=== PATIENT | male | born 1935 | race Caucasian/White ===

== ENCOUNTER 2019-12-03 15:00 | HOS | payer OTHER, MEDICARE, SELFPAY ==
[2019-12-03] VITALS (8 sets, daily range): BP systolic 151–181; BP diastolic 71–103; PULSE 70–143; RESP 18–26; TEMP 36–36.6; O2SAT 95–100; BMI 21.8
--- NOTE | ~2019-12-03 | CT_ITS ---
EXAMINATION: CT brain wo con EXAM DATE: 12/03/2019 16:09 INDICATION: Fall. Lung cancer. TECHNIQUE: Spiral CT of the head was performed without contrast. Axial, coronal and sagittal images were reviewed. The dose-length product (DLP) for this examination was 605.33 mGy-cm. The exposure w as tailored according to patient size, and iterative reconstruction (ASIR) was used as additional dos e reduction technique. There is no prior study for comparison. FINDINGS: Heterogeneous right temporal lobe mass measuring 3.1 cm with sizable amount of hyperdensity within it and moderate amount of associated adjacent right temporal lobe vasogenic edema. Mass has a lso involves the dura, calvarium with complete bony dehiscence for about 2 cm diameter region. Appear ance is most consistent with a hemorrhagic metastatic lesion. There is also erosion of the calvarium along the dura in the right parietal region and larger amount in the left parieto-occipital region (w hich also involves the outer table and sagittal sinus) with hyperdense metastatic disease measuring a bout 4 mm in thickness. Abnormal soft tissue densities also seen along the superficial aspect of the left parieto-occipital bone. There is small right-sided mildly dense fluid collection, could be subac tanacross subdural hematoma. No hydrocephalus. Mild microangiopathy and cerebral atrophy. Bilateral cataract surgery. The visualiz ed portions of the sinuses and mastoid air cells are well aerated. IMPRESSION: 1. Intracranial metastatic disease with right temporal lobe hemorrhagic metastasis measuring 3.1 cm , bony dehiscence of calvarium. 2. Epidural malignancy invading calvarium right parietal and left parieto-occipital regions. 3. Mildly dense than right-sided subdural fluid collection could be subacute hematoma. I discussed these findings with Nicolasa Hernandez MD at 12/03/2019 16:21 NEUROSCIENCE SPECIALIST . Reviewed, dictated and finalized at location A. OSCIENCE SPECIALIST IMPRESSION: 1. Intracranial metastatic disease with right temporal lobe hemorrhagic metas tasis measuring 3.1 cm, bony dehiscence of calvarium. 2. Epidural malignancy invading calvarium right parietal and left parieto-occi pital regions. 3. Mildly dense than right-sided subdural fluid collection could be subacute h ematoma. I discussed these findings with Nicolasa Hernandez MD at 12/03/2019 16:21 NEUROSCIENCE SPECIALIST .
--- NOTE | ~2019-12-03 | XR_ITS ---
EXAMINATION: XR chest 2V EXAM DATE: 12/03/2019 16:14 INDICATION: Fall and weakness. Shortness of breath. TECHNIQUE: Frontal and lateral projections of the chest obtained and reviewed. Comparison is made to prior examination from 11/11/2019. FINDINGS: Extensive abnormal reticulation, chronic interstitial lung disease. There is left hilar, ri ght lower paratracheal lymphadenopathy. Some more focal opacities could be the nodules suspected to b e cancer and described on CT scan from September. No evidence of superimposed acute airspace disease. No pneumothorax or sizable pleural effusion. Cardiac silhouette is enlarged but stable in size compar ed to prior exam. There is aortic arterial sclerosis. There are mild bony degenerative changes. IMPRESSION: 1. Extensive abnormal reticulation, chronic interstitial lung disease. 2. Pulmonary nodules, left hilar and mediastinal metastatic lymphadenopathy. 3. No acute findings suspected. Reviewed, dictated and finalized at location A. NT CHEMIST
--- NOTE | 2019-12-03 15:16 | PC.NURSE ---
Patient was brought into the ED from home by his daughter due to having 2 falls today. She reports that she found him on the floor next to his bed when she came over this morning. Patient denied that he fell and told her that he was just laying on the ground to sleep. Patient was unable to get up on his own and his daughter was unable to get him up. He was also incontinent of urine at that time. EMS was called but patient refused transport. She reports he was able to tell them day, date, time, president. She also states that after EMS left the patient was not able to recall that it was breakfast time and he was denying that he fell. She reports that patient had a second ground level fall and she needed to take him for evaluation. Patient was still denying that he fell for the second time. His daughter further states that this patient is not compliant with home oxygen use and that he is not eating or drinking at home. She reports that he has been having increasing weakness as well. She does not believe that he is able to care for himself safely and is looking for possible placement for the patient. He is reported to have started with hospice today as well. The patient's daughter is discussing these issues with the EDP.
--- NOTE | 2019-12-03 15:18 | ED.FALL ---
HPI - Fall General Chief Complaint: Fall Stated Complaint: weakness, falls, congestion Time Seen by Provider: 12/03/19 15:14 Source: patient, family (daughter) and RN notes reviewed Mode of arrival: ambulatory Limitations: no limitations History of Present Illness HPI Narrative: Pt is an 84 y/o white male who presents to the ED with c/o 2 unwitnessed falls today. PT states that the falls hadn't been hard, though he is unsure why he fell. Pt denies pain anywhere, SOB, or nausea. He notes he hasn't had an appetite. The pt's daughter reports that she had been at his house today showing a new home health nurse around when she found that the pt had fallen and had his head propped on a pair of wadded up jeans for a pillow between his bed and nightstand. As that time EMS was called, but by the time they arrived the pt had already been able to move himself off the floor and to his bed. His daughter notes that the pt didn't want EMS there and refused to go with them. His daughter states she had run an errand a little later and when she returned she found that the pt had once again fallen near the front door and this time was unable to pick himself up. The home health nurse and daughter were able to help the pt reach a wheelchair and then a recliner. Normally the pt refuses to use a walker to move around, but he did use one to reach the car when coming to the ED. The pt was Dx with lung CA 3 years ago and over the past 2 years he has progressively worsened (up until his last hospitalization the pt had still been driving). The pt recently saw Dr. Alvarez who recommended hospice. Two weeks ago he saw his oncologist, who he is scheduled to see again on 06 December, and at that time he might be given medication which has a small chance of making him more comfortable, but he won't be doing any more treatments. Aside from the falls, the pt has also been congested, not eating/drinking normally, dehydrated, his speech has been garbled (past couple of days), and his O2Sat levels drop to the 70's-80's with any activity (at rest his O2Sat has been fine). Because the pt still lives alone and his condition is progressively worsening, especially over the last couple days, the pt's daughter wants the pt to be placed in a home somewhere under hospice so that the pt can be given fluids at least if need be and watched for falls. She notes that her also has stage 4 lung CA, her father wouldn't want to live at her house, and she is unable to care for both of them as she can't lift her father off the ground when he falls. Pt has a Hx of Orthostatic Hypotension and Alzheimer's. The scabbing on the pt's head is due to falling a couple weeks ago. complaint: fall Fall witnessed: no Place fall occurred: home Context: other (terminal lung CA with progressively wosening Sx) Associated symptoms (after fall): denies Related Data Home Medications Medication Instructions Recorded Confirmed citalopram 10 mg tablet 10 mg PO DAILY 09/29/19 12/03/19 cyanocobalamin (vitamin B-12) 1,000 mcg PO DAILY 09/29/19 12/03/19 1,000 mcg tablet donepezil 10 mg tablet 10 mg PO DAILY tablet 09/29/19 12/03/19 metformin 500 mg tablet 500 mg PO QAM 09/29/19 12/03/19 albuterol sulfate [ProAir HFA] 1 inhalation INHALATION Q4H PRN 11/11/19 12/03/19 aspirin 81 mg DAILY 12/03/19 12/03/19 Allergies Allergy/AdvReac Type Severity Reaction Status Date / Time No Known Drug Allergies Allergy Unknown Unknown Verified 11/28/19 11:44 Review of Systems Review of Systems: All systems reviewed & are unremarkable except as noted in HPI and below Constitutional: Constitutional: Reports poor appetite and Denies other (pain anywhere) Comments: reports dehydration; garbled speech ENT: Reports other (congestion) Respiratory: Respiratory: Denies dyspnea Gastrointestinal: Gastrointestinal: Denies nausea Integumentary/Breasts: Skin/Breast: Reports other (2 week old scabbing on head) [facility] Past Medical History
[2019-12-03 15:48] LABS: Basophils Absolute Auto 0.1 K/mm3 (0.0-0.1); Basophils Percent Auto 0.3 % (0.2-1.2); Eosinophils Absolute Auto 0.3 K/mm3 (0-0.3); Eosinophils Percent Auto 0.9 % (0-4.4); Hematocrit 47.1 % (42.0-52.0); Hemoglobin 15.2 g/dL (14.0-18.0); Immature Granulocyte Percent A 1.4 % (0-0.5); Lymphocytes Absolute Auto 1.32 K/mm3 (0.9-3.2); Lymphocytes Percent Auto 4.5 % (18.3-44.2); Mean Corpuscular HGB Conc 32.3 g/dl (32-36); Mean Corpuscular Hemoglobin 29.6 pg (26-34); Mean Corpuscular Volume 91.6 fl (80-100); Mean Platelet Volume 11.5 fl (7.4-10.4); Monocytes Absolute Auto 1.5 K/mm3 (0.1-0.6); Neutrophils Percent Auto 87.9 % (45.5-73.1); Platelet Count Result 246 k/mm3 (150-375); Red Blood Count 5.14 M/mm3 (4.6-6.20); Red Cell Distribution Width 14.4 % (11.5-14.5); White Blood Count 29.5 K/mm3 (4.5-10.0)
[2019-12-03] MEDS: LACTATED RINGERS 1,000 ML 999 ML IV CONT (15:56)
--- NOTE | 2019-12-03 15:57 | PC.NURSE ---
Patient to radiology at this time.
[2019-12-03 16:37] LABS: Alanine Aminotransferase 49 U/L (4-50); Albumin Level 3.6 g/dL (3.5-5.1); Alkaline Phosphatase 98 U/L (38-126); Aspartate Amino Transferase 51 U/L (17-59); Bilirubin,Total 0.8 mg/dL (0.2-1.3); Blood Urea Nitrogen 41 mg/dL (9-20); Calcium 13.3 mg/dL (8.4-10.2); Carbon Dioxide 29 mmol/L (22-30); Chloride 101 mmol/L (98-107); Estimated Glomerular Filt Rate 48; Glucose 137 mg/dL (75-110); Potassium 4.7 mmol/L (3.4-5.0); Sodium 140 mmol/L (137-145)
--- NOTE | 2019-12-03 17:58 | PM.IMHP ---
H&P: HPI History of Present Illness Chief complaint: Metastatic lung CA with brain mets Narrative: Jose R Gaitan is a 84 year old male with diabetes mil dementia further fluids vascular disease and COPD was recently diagnosed with lung cancer with brain metastases. He had a biopsy at [facility] in [place] in October 2019. On November 11 2019 he was admitted to [facility] due to acute respiratory failure. He was treated for community-acquired pneumonia and improved. He has oxygen at home for p.r.n. use. His appetite is declined recently. He has lost about 40 lb over the last several months. His gait has become more unsteady. He sleeping more. Up until the last few days he was independent for all ADLs and living alone. However due to his decline he and his family opted for hospice care. He was admitted to hospice on December 02. With the hospice nurse met the daughter at the house further 24 hour follow-up visit they found the patient on the floor. He had fallen twice during the day. Because he was unsafe at home and because of possible head trauma he was directed by hospice nurse to go to the emergency department for evaluation. System review is positive for decreased appetite, weight loss, dyspnea on exertion. He had 1 episode of blood in his stool during the past month. Bright red and painless. Review of Systems Review of Systems: All systems reviewed & are unremarkable except as noted in HPI and below PMFSH Past Medical History Medical History Alzheimers disease Amputated toe of left foot Great toe 04/2019 Bladder cancer CKD (chronic kidney disease) Dementia Depression Dizziness History of biliary stent insertion 2 stents in left leg 05/2018 Hypertension Hypoglycemia Insulin dependent diabetes mellitus Lung cancer Orthostatic hypotension PVD (peripheral vascular disease) Ulcer Left foot Surgical History Surgical History H/O left knee surgery H/O toe surgery Left great toe 05/2019 History of lung biopsy History of tonsillectomy Status post peripheral artery angioplasty with insertion of stent Left leg Family History Family History Father Family history of premature coronary heart disease Mother Family history of premature coronary heart disease Sibling Alcohol abuse Non-Hodgkin lymphoma Social History Social History (Updated 12/03/19 @ 18:14 by Ion Haji MD) Social History: Lives alone in his own home. His daughter, his only child, is his power of mergers and acquisitions attorney. He is a retired electrician machine shop. Smoking packs per day: 2 Smoking cigarettes per day: 40.0 Smoking status: Former smoker Smoking end date: 11/09/89 Alcohol intake: never Substance use: never Living arrangements: alone Occupation/Education: retired Gender identity (if verbalized by the patient): Male Spiritual care concerns: No Agree to blood products: Yes Meds Home Medications and Allergies Home Medications Medication Instructions Recorded Confirmed Type citalopram 10 mg tablet 10 mg PO DAILY 09/29/19 11/28/19 History cyanocobalamin (vitamin B-12) 1,000 mcg PO DAILY 09/29/19 11/28/19 History 1,000 mcg tablet donepezil 10 mg tablet 10 mg PO DAILY tablet 09/29/19 11/28/19 History metformin 500 mg tablet 500 mg PO BID 09/29/19 11/28/19 History albuterol sulfate [ProAir HFA] 1 inhalation INHALATION Q4H PRN 11/11/19 11/28/19 History aspirin 12/03/19 History Allergies Allergy/AdvReac Type Severity Reaction Status Date / Time No Known Drug Allergies Allergy Unknown Unknown Verified 11/28/19 11:44 Vital Signs Vital Signs - 24 hr 12/03/19 15:04 12/03/19 15:22 12/03/19 15:24 Temperature 96.8 F L 97.1 F L Pulse Rate 84 119 H Respiratory Rate 18 26 H 26 H Blood Pressure 159/76 H 163/91 H Pulse Oximetry 98 1
--- NOTE | 2019-12-03 19:07 | PC.NURSE ---
This patient, Jose R Gaitan, was admitted to 3 [facility] Surg Room 318-01. Patient/family oriented to hospital policies and general routines including ID bracelet, bed and alarms, visiting hours, pain management, procedures, bathroom and other care routines, personal items, smoking policy, room service/diet, and visiting hours. Valuables list has been completed. Information on how to activate the Rapid Response Team has been discussed. Patient/Family are encouraged to report perceived risks to care and to ask questions if they do not understand what they are told or what they should do.
[2019-12-03] MEDS: LORAZEPAM INJ 2 MG/ML VIAL 1 MG IV PUSH (22:32)
[2019-12-04 06:17] VITALS: BP 150/69; PULSE 80; RESP 20; TEMP 36.6; O2SAT 98
[2019-12-04] MEDS: CITALOPRAM HYDROBROMIDE 10 MG TABLET PO (09:30)
--- NOTE | 2019-12-04 11:28 | P.PNIM_ITS ---
Progress Note: A&P Assessment and Plan (1) Palliative care by specialist: Code(s): Z51.5 - Encounter for palliative care Status: Acute Assessment and Plan: * Required GIP status due to intermittent, worsen, uncontrolled agitation * Palliative regimen as ordered, including lorazepam * Diet order and will encourage hydration by mouth * At this portion patient and family desire only comfort care * Await placement at facility under hospice care (2) Brain metastases: Code(s): C79.31 - Secondary malignant neoplasm of brain Status: Acute Assessment and Plan: * Likely from primary lung cancer * Likely causing his gait disturbance as he has mild dysmetria on the left upper extremity * At this point he is unsafe to stay alone (3) Subdural hematoma: Code(s): S06.5X9A - Traumatic subdural hemorrhage with loss of consciousness of unspecified duration, initial encounter Status: Acute Assessment and Plan: * Likely due to recent falls * Likely subacute (4) Intracranial hemorrhage: Code(s): I62.9 - Nontraumatic intracranial hemorrhage, unspecified Status: Acute Assessment and Plan: * Likely due to brain metastases with recent head trauma (5) Gait disorder: Code(s): R26.9 - Unspecified abnormalities of gait and mobility Status: Acute Assessment and Plan: * Likely due to brain metastases and diabetic polyneuropathy (6) Lung cancer: Code(s): C34.90 - Malignant neoplasm of unspecified part of unspecified bronchus or lung Status: Acute Assessment and Plan: * Prognosis is terminal * He is declining rapidly (7) Depression: Qualifiers: Depression Type: unspecified Qualified Code(s): F32.9 - Major depressive disorder, single episode, unspecified Code(s): F32.9 - Major depressive disorder, single episode, unspecified Status: Chronic Assessment and Plan: * Continue citalopram (8) Dementia: Qualifiers: Dementia type: unspecified type Dementia behavioral disturbance: with out behavioral disturbance Qualified Code(s): F03.90 - Unspecified dementia without behavioral disturbance Code(s): F03.90 - Unspecified dementia without behavioral disturbance Status: Chronic Assessment and Plan: * Clinically mild but with poor decision making (9) Hypertension: Qualifiers: Hypertension type: essential hypertension Qualified Code(s): I10 - Essential (primary) hypertension Code(s): I10 - Essential (primary) hypertension Status: Chronic Assessment and Plan: * Hold antihypertensives (10) PVD (peripheral vascular disease): Code(s): I73.9 - Peripheral vascular disease, unspecified Status: Chronic Assessment and Plan: * May be contributing to his gait issues (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
--- NOTE | 2019-12-04 11:28 | PM.IMPN ---
Progress Note: A&P Assessment and Plan (1) Palliative care by specialist: Code(s): Z51.5 - Encounter for palliative care Status: Acute Assessment and Plan: Required GIP status due to intermittent, worsen, uncontrolled agitation Palliative regimen as ordered, including lorazepam Diet order and will encourage hydration by mouth At this portion patient and family desire only comfort care Await placement at facility under hospice care (2) Brain metastases: Code(s): C79.31 - Secondary malignant neoplasm of brain Status: Acute Assessment and Plan: Likely from primary lung cancer Likely causing his gait disturbance as he has mild dysmetria on the left upper extremity At this point he is unsafe to stay alone (3) Subdural hematoma: Code(s): S06.5X9A - Traumatic subdural hemorrhage with loss of consciousness of unspecified duration, initial encounter Status: Acute Assessment and Plan: Likely due to recent falls Likely subacute (4) Intracranial hemorrhage: Code(s): I62.9 - Nontraumatic intracranial hemorrhage, unspecified Status: Acute Assessment and Plan: Likely due to brain metastases with recent head trauma (5) Gait disorder: Code(s): R26.9 - Unspecified abnormalities of gait and mobility Status: Acute Assessment and Plan: Likely due to brain metastases and diabetic polyneuropathy (6) Lung cancer: Code(s): C34.90 - Malignant neoplasm of unspecified part of unspecified bronchus or lung Status: Acute Assessment and Plan: Prognosis is terminal He is declining rapidly (7) Depression: Qualifiers: Depression Type: unspecified Qualified Code(s): F32.9 - Major depressive disorder, single episode, unspecified Code(s): F32.9 - Major depressive disorder, single episode, unspecified Status: Chronic Assessment and Plan: Continue citalopram (8) Dementia: Qualifiers: Dementia type: unspecified type Dementia behavioral disturbance: without behavioral disturbance Qualified Code(s): F03.90 - Unspecified dementia without behavioral disturbance Code(s): F03.90 - Unspecified dementia without behavioral disturbance Status: Chronic Assessment and Plan: Clinically mild but with poor decision making (9) Hypertension: Qualifiers: Hypertension type: essential hypertension Qualified Code(s): I10 - Essential (primary) hypertension Code(s): I10 - Essential (primary) hypertension Status: Chronic Assessment and Plan: Hold antihypertensives (10) PVD (peripheral vascular disease): Code(s): I73.9 - Peripheral vascular disease, unspecified Status: Chronic Assessment and Plan: May be contributing to his gait issues (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 Very drowsy today. Has been out of bed. Refused breakfast. Denied pain. No headache. No abnormal bleeding. No chest pain or shortness of breath. No swelling. No abdominal pain. No nausea vomiting. Review of Systems Review of Systems: All systems reviewed & are unremarkable except as noted in HPI and below Exam Narrative: Exam Narrative: HEENT: EOMI, PERRL, pharyngeal mucosa pink and intact
[2019-12-04 22:55] VITALS: BP 151/63; PULSE 103; RESP 20; TEMP 36.4; O2SAT 100
[2019-12-05] MEDS: LORAZEPAM INJ 2 MG/ML VIAL 1 MG IV PUSH (03:42)
[2019-12-05 08:00] VITALS: BP 162/80; PULSE 96; RESP 15; TEMP 36.7; O2SAT 100
--- NOTE | 2019-12-05 09:28 | P.DS_ITS ---
DS: Diagnosis Admitting Diagnosis Admitting Diagnosis: Encounter for palliative care Discharge Diagnosis (1) Palliative care by specialist: Code(s): Z51.5 - Encounter for palliative care Status: Acute Assessment and Plan: * Required GIP status due to intermittent, worsen, uncontrolled agitation * Palliative regimen as ordered, including lorazepam * Diet order and will encourage hydration by mouth * At this juncture patient and family desire only comfort care * To MD with hospice care 12/05 (2) Brain metastases: Code(s): C79.31 - Secondary malignant neoplasm of brain Status: Acute Assessment and Plan: * Likely from primary lung cancer * Likely causing his gait disturbance as he has mild dysmetria on the left upper extremity * At this point he is unsafe to stay alone (3) Subdural hematoma: Code(s): S06.5X9A - Traumatic subdural hemorrhage with loss of consciousness of unspecified duration, initial encounter Status: Acute Assessment and Plan: * Likely due to recent falls * Likely subacute (4) Intracranial hemorrhage: Code(s): I62.9 - Nontraumatic intracranial hemorrhage, unspecified Status: Acute Assessment and Plan: * Likely due to brain metastases with recent head trauma (5) Gait disorder: Code(s): R26.9 - Unspecified abnormalities of gait and mobility Status: Acute Assessment and Plan: * Likely due to brain metastases and diabetic polyneuropathy (6) Lung cancer: Code(s): C34.90 - Malignant neoplasm of unspecified part of unspecified bronchus or lung Status: Acute Assessment and Plan: * Prognosis is terminal * He is declining rapidly (7) Depression: Qualifiers: Depression Type: unspecified Qualified Code(s): F32.9 - Major depressive disorder, single episode, unspecified Code(s): F32.9 - Major depressive disorder, single episode, unspecified Status: Chronic Assessment and Plan: * Continue citalopram (8) Dementia: Qualifiers: Dementia behavioral disturbance: without behavioral disturbance Dementia type: unspecified type Qualified Code(s): F03.90 - Unspecified dementia without behavioral disturbance Code(s): F03.90 - Unspecified dementia without behavioral disturbance Status: Chronic Assessment and Plan: * Clinically mild but with poor decision making (9) Hypertension: Qualifiers: Hypertension type: essential hypertension Qualified Code(s): I10 - Essential (primary) hypertension Code(s): I10 - Essential (primary) hypertension Status: Chronic Assessment and Plan: * Hold antihypertensives (10) PVD (peripheral vascular disease): Code(s): I73.9 - Peripheral vascular disease, unspecified Status: Chronic Assessment and Plan: * May be contributing to his gait issues (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
--- NOTE | 2019-12-05 09:28 | PM.DS ---
DS: Diagnosis Admitting Diagnosis Admitting Diagnosis: Encounter for palliative care Discharge Diagnosis (1) Palliative care by specialist: Code(s): Z51.5 - Encounter for palliative care Status: Acute Assessment and Plan: Required GIP status due to intermittent, worsen, uncontrolled agitation Palliative regimen as ordered, including lorazepam Diet order and will encourage hydration by mouth At this juncture patient and family desire only comfort care To NH with hospice care 12/05 (2) Brain metastases: Code(s): C79.31 - Secondary malignant neoplasm of brain Status: Acute Assessment and Plan: Likely from primary lung cancer Likely causing his gait disturbance as he has mild dysmetria on the left upper extremity At this point he is unsafe to stay alone (3) Subdural hematoma: Code(s): S06.5X9A - Traumatic subdural hemorrhage with loss of consciousness of unspecified duration, initial encounter Status: Acute Assessment and Plan: Likely due to recent falls Likely subacute (4) Intracranial hemorrhage: Code(s): I62.9 - Nontraumatic intracranial hemorrhage, unspecified Status: Acute Assessment and Plan: Likely due to brain metastases with recent head trauma (5) Gait disorder: Code(s): R26.9 - Unspecified abnormalities of gait and mobility Status: Acute Assessment and Plan: Likely due to brain metastases and diabetic polyneuropathy (6) Lung cancer: Code(s): C34.90 - Malignant neoplasm of unspecified part of unspecified bronchus or lung Status: Acute Assessment and Plan: Prognosis is terminal He is declining rapidly (7) Depression: Qualifiers: Depression Type: unspecified Qualified Code(s): F32.9 - Major depressive disorder, single episode, unspecified Code(s): F32.9 - Major depressive disorder, single episode, unspecified Status: Chronic Assessment and Plan: Continue citalopram (8) Dementia: Qualifiers: Dementia behavioral disturbance: without behavioral disturbance Dementia type: unspecified type Qualified Code(s): F03.90 - Unspecified dementia without behavioral disturbance Code(s): F03.90 - Unspecified dementia without behavioral disturbance Status: Chronic Assessment and Plan: Clinically mild but with poor decision making (9) Hypertension: Qualifiers: Hypertension type: essential hypertension Qualified Code(s): I10 - Essential (primary) hypertension Code(s): I10 - Essential (primary) hypertension Status: Chronic Assessment and Plan: Hold antihypertensives (10) PVD (peripheral vascular disease): Code(s): I73.9 - Peripheral vascular disease, unspecified Status: Chronic Assessment and Plan: May be contributing to his gait issues (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: Code(s): E11.42 - Type 2 diabetes mellitus with diabetic polyneuropathy Status: Acute Assessment and Plan: Hold metformin (12) Hypercalcemia: Code(s): E83.52 - Hypercalcemia Status: Acute Assessment and Plan: Likely due to his metastatic lung cancer Volume depletion due to decreased oral intake is likely contributing as well (13) TOY (acute kidney injury): Code(s): N17.9 - Acute kidney failure, unspecified Status: Acute Assessment and Plan: Likely due to volume contraction from decreased oral intake DS: Summary Hospital Course Reason for hospitalization: Admitted after fall at home Hospital Course: Sent to emergency department where he was found to have chronic subdural hematoma as well as acute bleed 1 of his brain metastases. 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 He had been admitted to hospice care just 1 day prior to admission hospital. He was uncomfortable and agitated. The symptoms were well controlled
== END 2019-12-05 17:20 | disposition hospice, inpatient (51) | DRG 54 ==
LOC: ANHED 17:49 → ANH3MEDSUR 18:43
PROVIDERS: Admitting Provider Internal Medicine; Emergency Provider General Practice; PCP Internal Medicine; Visit Provider Internal Medicine
DX: C79.31 Secondary malignant neoplasm of brain (principal); S06.5X9A Traumatic subdural hemorrhage with loss of consciousness of unspecified duration, initial encounter; C34.90 Malignant neoplasm of unspecified part of unspecified bronchus or lung; I62.9 Nontraumatic intracranial hemorrhage, unspecified; N17.9 Acute kidney failure, unspecified; E11.9 Type 2 diabetes mellitus without complications; I99.9 Unspecified disorder of circulatory system; J44.9 Chronic obstructive pulmonary disease, unspecified; Z99.81 Dependence on supplemental oxygen; R26.81 Unsteadiness on feet; Z51.5 Encounter for palliative care; Z91.81 History of falling; G30.9 Alzheimer's disease, unspecified; F02.80 Dementia in other diseases classified elsewhere, unspecified severity, without behavioral disturbance, psychotic disturbance, mood disturbance, and anxiety; Z89.412 Acquired absence of left great toe; Z85.51 Personal history of malignant neoplasm of bladder; N18.9 Chronic kidney disease, unspecified; F32.9 Major depressive disorder, single episode, unspecified; Z95.820 Peripheral vascular angioplasty status with implants and grafts; R27.8 Other lack of coordination; W19.XXXA Unspecified fall, initial encounter; I10 Essential (primary) hypertension; I73.9 Peripheral vascular disease, unspecified; E11.42 Type 2 diabetes mellitus with diabetic polyneuropathy; E83.52 Hypercalcemia; I95.1 Orthostatic hypotension; Z79.4 Long term (current) use of insulin
CPT/HCPCS: 36415; 70450; 71046; 80053; 85025; 96360; 99285; A9270; J2060; J7120